=== PATIENT | female | born 2000 | race Caucasian/White ===

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

== ENCOUNTER 2022-04-24 23:47 | Emergency (ER) | payer OTHER, BC ==
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
[2022-04-25] MEDS ORDERED: MORPHINE 2 MG/ML CARPUJECT IVP STA ×2 (01:53→03:11)
[2022-04-25] MEDS ORDERED: ONDANSETRON 4 MG/2 ML VIAL IVP STA (01:53)
[2022-04-25] MEDS ORDERED: SODIUM CHLORIDE 0.9% 1,000 ML IV STA (01:53)
[2022-04-25 02:02] LABS: BASOPHILS # (AUTO) 0.1 10^3/uL (0.0-0.1); BASOPHILS % (AUTO) 0.7 %; EOSINOPHILS # (AUTO) 0.2 10^3/uL (0.0-0.7); EOSINOPHILS % (AUTO) 2.5 %; HCT - HEMATOCRIT 42.4 % (37.0-47.0); HGB - HEMOGLOBIN 14.1 g/dL (12.0-16.0); LYMPHOCYTES # (AUTO) 2.3 10^3/uL (1.5-3.5); MEAN CORPUSCULAR HEMOGLOBIN 29.2 pg (27.0-31.0); MEAN CORPUSCULAR HGB CONC 33.3 g/dL (32.0-36.0); MEAN CORPUSCULAR VOLUME 87.8 fL (81.0-99.0); MONOCYTES # (AUTO) 0.7 10^3/uL (0.0-1.0); MONOCYTES % (AUTO) 8.4 %; NEUTROPHILS # (AUTO) 5.2 10^3/uL (1.5-6.6); NEUTROPHILS % (AUTO) 61.2 %; PLT - PLATELET COUNT 224 10^3/uL (130-450); RED BLOOD COUNT 4.83 10^6/uL (4.20-5.40); RED CELL DISTRIBUTION WIDTH 11.9 % (12.0-15.0); WHITE BLOOD COUNT 8.4 x10^3/uL (4.8-10.8)
[2022-04-25 02:16] LABS: ALBUMIN 5.2 g/dL (3.2-5.5); ALBUMIN/GLOBULIN RATIO 1.9 (1.0-2.2); BILIRUBIN,TOTAL 0.6 mg/dL (0.2-1.0); CALCIUM 9.7 mg/dL (8.5-10.3); CREATININE 0.7 mg/dL (0.4-1.0); POTASSIUM 3.3 mmol/L (3.5-5.0); TOTAL PROTEIN 7.9 g/dL (6.7-8.2)
[2022-04-25 03:32] LABS: BILIRUBIN,URINE NEGATIVE (NEGATIVE); GLUCOSE, URINE (UA) NEGATIVE (NEGATIVE); KETONES,URINE (UA) NEGATIVE (NEGATIVE); LEUKOCYTE ESTERASE, URINE NEGATIVE (NEGATIVE); NITRITE,URINE NEGATIVE (NEGATIVE); OCCULT BLOOD,URINE NEGATIVE (NEGATIVE); PROTEIN,URINE NEGATIVE (NEGATIVE); UROBILINOGEN,URINE 0.2 (NORMAL) E.U./dL (NORMAL)
[2022-04-25 03:33] LABS: CLARITY,URINE CLEAR (CLEAR)
[2022-04-25 04:40] LABS: HCG UR QUAL NEGATIVE
[2022-04-25 05:37] VITALS: BP 118/75
--- NOTE | 2022-04-25 12:12 | CT Report ---
PROCEDURE: Abdomen/Pelvis W INDICATIONS: RLQ pain, tenderness CONTRAST: IV CONTRAST: Optiray 320 ml: 100 PO CONTRAST: *NO PO CONTRAST TECHNIQUE: After the administration of IV contrast, 5 mm thick sections acquired from the diaphragms to the symp hysis. 5 mm thick coronal and sagittal reformats were acquired. For radiation dose reduction, the f ollowing was used: automated exposure control, adjustment of mA and/or kV according to patient size. COMPARISON: Ultrasound pelvis, 08/05/2021. FINDINGS: Image quality: Excellent. ABDOMEN: Lung bases: Lung bases are clear. Heart size is normal. Solid organs: Liver and spleen are normal in size and enhancement. Gallbladder is normal. Biliary system is non dilated. Pancreas enhances normally. No adrenal nodules. Kidneys demonstrate normal size and enhancement, without hydronephrosis. Peritoneum and bowel: Normal appendix. Bowel loops demonstrate normal wall thickness and caliber. N o free fluid or air. Nodes and vessels: No retroperitoneal or mesenteric adenopathy by size criteria. Aorta and inferior vena cava are normal in size. Miscellaneous: No ventral hernias. PELVIS: Genitourinary: Bladder wall thickness is normal. Uterus and ovaries are grossly normal. Suspected c orpus due to cyst in the right ovary. No free fluid in the cul-de-sac or adnexa. Miscellaneous: No inguinal hernias or adenopathy. Bones: No suspicious bony lesions. No vertebral body compression fractures. IMPRESSION: 1. Normal appendix. 2. Suspect a corpus due to cyst in the right ovary. No free fluid in the pelvis. No significant discrepancy with the preliminary interpretation. Reviewed by: Argentina Rutledge MD on 04/25/2022 12:11 PM PDT Approved by: Argentina Rutledge MD on 04/25/2022 12:11 PM PDT Station ID: [id number]
== END 2022-04-25 05:35 | disposition home or self-care (01) ==
LOC: ED 23:47
DX: R10.31 Right lower quadrant pain (principal); M54.50 Low back pain, unspecified
CPT/HCPCS: 36415; 74177; 80053; 81003; 81025; 83690; 85025; 96374; 96375; 96376; 99284; Q9967; 81001; 87086

== ENCOUNTER 2022-08-06 11:00 | Outpatient (CLI) | payer BC ==
[2022-08-06 13:52] LABS: BASOPHILS # (AUTO) 0.1 10^3/uL (0.0-0.1); BASOPHILS % (AUTO) 1.1 %; EOSINOPHILS # (AUTO) 0.1 10^3/uL (0.0-0.7); EOSINOPHILS % (AUTO) 1.7 %; HCT - HEMATOCRIT 42.5 % (37.0-47.0); HGB - HEMOGLOBIN 13.6 g/dL (12.0-16.0); LYMPHOCYTES # (AUTO) 1.5 10^3/uL (1.5-3.5); LYMPHOCYTES % (AUTO) 28.2 %; MEAN CORPUSCULAR HEMOGLOBIN 28.6 pg (27.0-31.0); MEAN CORPUSCULAR VOLUME 89.3 fL (81.0-99.0); MEAN PLATELET VOLUME 10.5 fL (7.9-10.8); MONOCYTES # (AUTO) 0.5 10^3/uL (0.0-1.0); MONOCYTES % (AUTO) 8.7 %; NEUTROPHILS # (AUTO) 3.2 10^3/uL (1.5-6.6); NEUTROPHILS % (AUTO) 60.1 %; PLT - PLATELET COUNT 234 10^3/uL (130-450); RED BLOOD COUNT 4.76 10^6/uL (4.20-5.40); RED CELL DISTRIBUTION WIDTH 11.7 % (12.0-15.0); WHITE BLOOD COUNT 5.3 x10^3/uL (4.8-10.8)
[2022-08-06 14:05] LABS: ALBUMIN 4.6 g/dL (3.2-5.5); ALBUMIN/GLOBULIN RATIO 1.8 (1.0-2.2); BILIRUBIN,TOTAL 0.8 mg/dL (0.2-1.0); CALCIUM 9.7 mg/dL (8.5-10.3); CREATININE 0.8 mg/dL (0.4-1.0); POTASSIUM 4.2 mmol/L (3.5-5.0); TOTAL PROTEIN 7.2 g/dL (6.7-8.2)
[2022-08-06 14:16] LABS: THYROID STIMULATING HORMONE 1.22 uIU/mL (0.34-5.60)
== END 2022-08-06 11:01 | disposition home or self-care (01) ==
LOC: LAB.S 11:00
PROVIDERS: ATTEND Registered Nurse
DX: Z79.899 Other long term (current) drug therapy (principal); Z13.29 Encounter for screening for other suspected endocrine disorder
CPT/HCPCS: 36415; 80053; 84443; 85025

== ENCOUNTER 2022-10-26 12:37 | Emergency (ER) | payer BC ==
--- OUTSIDE RECORDS SUMMARY | 2022-10-26 13:01 | EXTERNAL MEDICAL SUMMARY RPT | Continuity of Care Document ---
:2000 Author Organization [facility] Address [address] [place] [address] Phone Care Team Providers Name Role Phone Unavailable Unavailable Unavailable Sonam Wyatt Unavailable Unavailable Allergies No information. Encounters No information. Functional Status No information. Immunizations No information. Medications date description facility 2022-08-02 00:00 escitalopram oxalate All 2022-09-05 00:00 MEDROXYPROGESTERONE ACETATE All 2022-08-02 00:00 escitalopram oxalate All 2022-08-02 00:00 escitalopram oxalate All 2022-08-02 00:00 escitalopram oxalate All 2022-08-03 00:00 bupropion hcl All 2022-08-07 00:00 bupropion hcl All 2022-09-05 00:00 bupropion hcl All 2022-09-06 00:00 bupropion hcl All Problems date description facility 2022-08-02 00:00 Thyroid disorder screening All 2022-08-02 00:00 Long-term drug therapy All 2022-08-02 00:00 Long-term (current) drug use All 2022-08-02 00:00 Screening for thyroid disorders All 2022-08-02 00:00 Encounter for screening for other suspe cted endocrine All disorder 2022-08-02 00:00 Other halfway (current) drug therapy All Procedures date description facility 2022-09-05 00:00 First Ix admin via ID IM or jet injects with All counseling by physician for adult 2022-09-05 00:00 Fluarix Quadrivalent Intramuscular Susp ension All Prefilled Syringe 0.5 ML 2022-09-05 00:00 Depo-Provera Injection only 150 mg All Results/Labs test date author facility value unit interpret ation Result panel 1 (unknown) (no date) (unknown) All (no value) (units unknown ) (unknown) Result panel 2 (unknown) (no date) (unknown) All (no value) (units unknown ) (unknown) Result panel 3 (unknown) (no date) (unknown) All (no value) (units unknown ) (unknown) Result panel 4 (unknown) (no date) (unknown) All (no value) (units unknown ) (unknown) Result panel 5 (unknown) (no date) (unknown) All (no value) (units unknown ) (unknown) Result panel 6 (unknown) (no date) (unknown) All (no value) (units unknown ) (unknown) Result panel 7 (unknown) (no date) (unknown) All (no value) (units unknown ) (unknown) Result panel 8 (unknown) (no date) (unknown) All (no value) (units unknown ) (unknown) Result panel 9 (unknown) (no date) (unknown) All (no value) (units unknown ) (unknown) Result panel 10 (unknown) (no date) (unknown) All (no value) (units unknown ) (unknown) Result panel 11 (unknown) (no date) (unknown) All (no value) (units unknown ) (unknown) Result panel 12 (unknown) (no date) (unknown) All (no value) (units unknown ) (unknown) Result panel 13 (unknown) (no date) (unknown) All (no value) (units unknown ) (unknown) Result panel 14 (unknown) (no date) (unknown) All (no value) (units unknown ) (unknown) Result panel 15 (unknown) (no date) (unknown) All (no value) (units unknown ) (unknown) Result panel 16 (unknown) (no date) (unknown) All (no value) (units unknown ) (unknown) Result panel 17 (unknown) (no date) (unknown) All (no value) (units unknown ) (unknown) Result panel 18 (unknown) (no date) (unknown) All (no value) (units unknown ) (unknown) Result panel 19 (unknown) (no date) (unknown) All (no value) (units unknown ) (unknown) Result panel 20 (unknown) (no date) (unknown) All (no value) (units unknown ) (unknown) Result panel 21 (unknown) (no date) (unknown) All (no value) (units unknown ) (unknown) Result panel 22 (unknown) (no date) (unknown) All (no value) (units unknown ) (unknown) Result panel 23 (unknown) (no date) (unknown) All (no value) (units unknown ) (unknown) Result panel 24 (unknown) (no date) (unknown) All (no value) (units unknown ) (unknown) Result panel 25 (unknown) (no date) (unknown) All (no value) (units unknown ) (unknown) Result panel 26 (unknown) (no date) (unknown) All (no value) (units unknown ) (unknown) Result panel 27 (unknown) (no date) (unknown) All (no value) (units unknown ) (unknown) Result panel 28 (unknown) (no date) (unknown) All (no value) (units unknown ) (unknown) Result panel 29 (unknown) (no date) (unknown) All (no value) (units unknown ) (unknown) Result panel 30 (unknown) (no date) (unknown) All (no value) (units unknown ) (unknown) Result panel 31 (unknown) (no date) (unknown) All (no value) (units unknown ) (unknown) Result panel 32 (unknown) (no date) (unknown) All (no value) (units unknown ) (unknown) Result panel 33 (unknown) (no date) (unknown) All (no value) (units unknown ) (unknown) Result panel 34 (unknown) (no date) (unknown) All (no value) (units unknown ) (unknown) Result panel 35 (unknown) (no date) (unknown) All (no value) (units unknown ) (unknown) Result panel 36 (unknown) (no date) (unknown) All (no value) (units unknown ) (unknown) Result panel 37 (unknown) (no date) (unknown) All (no value) (units unknown ) (unknown) Result panel 38 (unknown) (no date) (unknown) All (no value) (units unknown ) (unknown) Result panel 39 (unknown) (no date) (unknown) All (no value) (units unknown ) (unknown) Result panel 40 (unknown) (no date) (unknown) All (no value) (units unknown ) (unknown) Result panel 41 (unknown) (no date) (unknown) All (no value) (units unknown ) (unknown) Result panel 42 (unknown) (no date) (unknown) All (no value) (units unknown ) (unknown) Result panel 43 (unknown) (no date) (unknown) All (no value) (units unknown ) (unknown) Result panel 44 (unknown) (no date) (unknown) All (no value) (units unknown ) (unknown) Result panel 45 (unknown) (no date) (unknown) All (no value) (units unknown ) (unknown) Result panel 46 (unknown) (no date) (unknown) All (no value) (units unknown ) (unknown) Result panel 47 (unknown) (no date) (unknown) All (no value) (units unknown ) (unknown) Result panel 48 (unknown) (no date) (unknown) All (no value) (units unknown ) (unknown) Result panel 49 (unknown) (no date) (unknown) All (no value) (units unknown ) (unknown) Result panel 50 (unknown) (no date) (unknown) All (no value) (units unknown ) (unknown) Result panel 51 (unknown) (no date) (unknown) All (no value) (units unknown ) (unknown) Result panel 52 (unknown) (no date) (unknown) All (no value) (units unknown ) (unknown) Result panel 53 (unknown) (no date) (unknown) All (no value) (units unknown ) (unknown) Result panel 54 (unknown) (no date) (unknown) All (no value) (units unknown ) (unknown) Result panel 55 (unknown) (no date) (unknown) All (no value) (units unknown ) (unknown) Result panel 56 (unknown) (no date) (unknown) All (no value) (units unknown ) (unknown) Result panel 57 (unknown) (no date) (unknown) All (no value) (units unknown ) (unknown) Result panel 58 (unknown) (no date) (unknown) All (no value) (units unknown ) (unknown) Result panel 59 (unknown) (no date) (unknown) All (no value) (units unknown ) (unknown) Result panel 60 (unknown) (no date) (unknown) All (no value) (units unknown ) (unknown) Result panel 61 (unknown) (no date) (unknown) All (no value) (units unknown ) (unknown) Result panel 62 (unknown) (no date) (unknown) All (no value) (units unknown ) (unknown) Result panel 63 (unknown) (no date) (unknown) All (no value) (units unknown ) (unknown) Result panel 64 (unknown) (no date) (unknown) All (no value) (units unknown ) (unknown) Result panel 65 (unknown) (no date) (unknown) All (no value) (units unknown ) (unknown) Result panel 66 (unknown) (no date) (unknown) All (no value) (units unknown ) (unknown) Result panel 67 (unknown) (no date) (unknown) All (no value) (units unknown ) (unknown) Result panel 68 (unknown) (no date) (unknown) All (no value) (units unknown ) (unknown) Result panel 69 (unknown) (no date) (unknown) All (no value) (units unknown ) (unknown) Result panel 70 (unknown) (no date) (unknown) All (no value) (units unknown ) (unknown) Result panel 71 (unknown) (no date) (unknown) All (no value) (units unknown ) (unknown) Result panel 72 (unknown) (no date) (unknown) All (no value) (units unknown ) (unknown) Result panel 73 (unknown) (no date) (unknown) All (no value) (units unknown ) (unknown) Result panel 74 (unknown) (no date) (unknown) All (no value) (units unknown ) (unknown) Result panel 75 (unknown) (no date) (unknown) All (no value) (units unknown ) (unknown) Result panel 76 (unknown) (no date) (unknown) All (no value) (units unknown ) (unknown) Result panel 77 (unknown) (no date) (unknown) All (no value) (units unknown ) (unknown) Result panel 78 (unknown) (no date) (unknown) All (no value) (units unknown ) (unknown) Result panel 79 (unknown) (no date) (unknown) All (no value) (units unknown ) (unknown) Result panel 80 (unknown) (no date) (unknown) All (no value) (units unknown ) (unknown) Result panel 81 (unknown) (no date) (unknown) All (no value) (units unknown ) (unknown) Result panel 82 (unknown) (no date) (unknown) All (no value) (units unknown ) (unknown) Result panel 83 (unknown) (no date) (unknown) All (no value) (units unknown ) (unknown) Result panel 84 (unknown) (no date) (unknown) All (no value) (units unknown ) (unknown) Result panel 85 (unknown) (no date) (unknown) All (no value) (units unknown ) (unknown) Result panel 86 (unknown) (no date) (unknown) All (no value) (units unknown ) (unknown) Result panel 87 (unknown) (no date) (unknown) All (no value) (units unknown ) (unknown) Result panel 88 (unknown) (no date) (unknown) All (no value) (units unknown ) (unknown) Result panel 89 (unknown) (no date) (unknown) All (no value) (units unknown ) (unknown) Result panel 90 (unknown) (no date) (unknown) All (no value) (units unknown ) (unknown) Result panel 91 (unknown) (no date) (unknown) All (no value) (units unknown ) (unknown) Result panel 92 (unknown) (no date) (unknown) All (no value) (units unknown ) (unknown) Result panel 93 (unknown) (no date) (unknown) All (no value) (units unknown ) (unknown) Result panel 94 (unknown) (no date) (unknown) All (no value) (units unknown ) (unknown) Result panel 95 (unknown) (no date) (unknown) All (no value) (units unknown ) (unknown) Result panel 96 (unknown) (no date) (unknown) All (no value) (units unknown ) (unknown) Result panel 97 (unknown) (no date) (unknown) All (no value) (units unknown ) (unknown) Result panel 98 (unknown) (no date) (unknown) All (no value) (units unknown ) (unknown) Result panel 99 (unknown) (no date) (unknown) All (no value) (units unknown ) (unknown) Result panel 100 (unknown) (no date) (unknown) All (no value) (units unknown ) (unknown) Result panel 101 (unknown) (no date) (unknown) All (no value) (units unknown ) (unknown) Result panel 102 (unknown) (no date) (unknown) All (no value) (units unknown ) (unknown) Result panel 103 (unknown) (no date) (unknown) All (no value) (units unknown ) (unknown) Result panel 104 (unknown) (no date) (unknown) All (no value) (units unknown ) (unknown) Result panel 105 (unknown) (no date) (unknown) All (no value) (units unknown ) (unknown) Result panel 106 (unknown) (no date) (unknown) All (no value) (units unknown ) (unknown) Result panel 107 (unknown) (no date) (unknown) All (no value) (units unknown ) (unknown) Result panel 108 (unknown) (no date) (unknown) All (no value) (units unknown ) (unknown) Result panel 109 (unknown) (no date) (unknown) All (no value) (units unknown ) (unknown) Result panel 110 (unknown) (no date) (unknown) All (no value) (units unknown ) (unknown) Result panel 111 (unknown) (no date) (unknown) All (no value) (units unknown ) (unknown) Result panel 112 (unknown) (no date) (unknown) All (no value) (units unknown ) (unknown) Result panel 113 (unknown) (no date) (unknown) All (no value) (units unknown ) (unknown) Result panel 114 (unknown) (no date) (unknown) All (no value) (units unknown ) (unknown) Result panel 115 (unknown) (no date) (unknown) All (no value) (units unknown ) (unknown) Result panel 116 (unknown) (no date) (unknown) All (no value) (units unknown ) (unknown) Result panel 117 (unknown) (no date) (unknown) All (no value) (units unknown ) (unknown) Result panel 118 (unknown) (no date) (unknown) All (no value) (units unknown ) (unknown) Result panel 119 (unknown) (no date) (unknown) All (no value) (units unknown ) (unknown) Result panel 120 (unknown) (no date) (unknown) All (no value) (units unknown ) (unknown) Result panel 121 (unknown) (no date) (unknown) All (no value) (units unknown ) (unknown) Result panel 122 (unknown) (no date) (unknown) All (no value) (units unknown ) (unknown) Result panel 123 (unknown) (no date) (unknown) All (no value) (units unknown ) (unknown) Result panel 124 (unknown) (no date) (unknown) All (no value) (units unknown ) (unknown) Result panel 125 (unknown) (no date) (unknown) All (no value) (units unknown ) (unknown) Result panel 126 (unknown) (no date) (unknown) All (no value) (units unknown ) (unknown) Result panel 127 (unknown) (no date) (unknown) All (no value) (units unknown ) (unknown) Result panel 128 (unknown) (no date) (unknown) All (no value) (units unknown ) (unknown) Result panel 129 (unknown) (no date) (unknown) All (no value) (units unknown ) (unknown) Result panel 130 (unknown) (no date) (unknown) All (no value) (units unknown ) (unknown) Result panel 131 (unknown) (no date) (unknown) All (no value) (units unknown ) (unknown) Result panel 132 (unknown) (no date) (unknown) All (no value) (units unknown ) (unknown) Result panel 133 (unknown) (no date) (unknown) All (no value) (units unknown ) (unknown) Result panel 134 (unknown) (no date) (unknown) All (no value) (units unknown ) (unknown) Result panel 135 (unknown) (no date) (unknown) All (no value) (units unknown ) (unknown) Social History No information. Vital Signs date measurement value units 2022-09-05 00:00 BMI 30.06 kg/m2 2022-09-05 00:00 weight_metric 89.36 kg 2022-09-05 00:00 weight_standard 197 lb
[2022-10-26 13:05] LABS: BASOPHILS % (AUTO) 0.6 %; EOSINOPHILS # (AUTO) 0.1 10^3/uL (0.0-0.7); EOSINOPHILS % (AUTO) 1.8 %; HCT - HEMATOCRIT 44.1 % (37.0-47.0); HGB - HEMOGLOBIN 14.2 g/dL (12.0-16.0); LYMPHOCYTES # (AUTO) 1.6 10^3/uL (1.5-3.5); LYMPHOCYTES % (AUTO) 25.2 %; MEAN CORPUSCULAR HEMOGLOBIN 28.2 pg (27.0-31.0); MEAN CORPUSCULAR HGB CONC 32.2 g/dL (32.0-36.0); MEAN CORPUSCULAR VOLUME 87.5 fL (81.0-99.0); MEAN PLATELET VOLUME 9.6 fL (7.9-10.8); MONOCYTES # (AUTO) 0.5 10^3/uL (0.0-1.0); MONOCYTES % (AUTO) 8.3 %; NEUTROPHILS % (AUTO) 63.9 %; PLT - PLATELET COUNT 253 10^3/uL (130-450); RED BLOOD COUNT 5.04 10^6/uL (4.20-5.40); RED CELL DISTRIBUTION WIDTH 11.4 % (12.0-15.0); WHITE BLOOD COUNT 6.2 x10^3/uL (4.8-10.8)
[2022-10-26 13:17] LABS: ALBUMIN 4.7 g/dL (3.2-5.5); ALBUMIN/GLOBULIN RATIO 1.6 (1.0-2.2); BILIRUBIN,TOTAL 0.7 mg/dL (0.2-1.0); CALCIUM 9.9 mg/dL (8.5-10.3); CREATININE 0.7 mg/dL (0.4-1.0); POTASSIUM 4.3 mmol/L (3.5-5.0); TOTAL PROTEIN 7.6 g/dL (6.7-8.2)
[2022-10-26] MEDS ORDERED: LIDOCAINE VISCOUS 2% 15 ML UDC MM STA (13:20)
[2022-10-26] MEDS ORDERED: MAG HYDROX/AL HYDROX/SIMETH 30 ML UDC PO STA (13:20)
[2022-10-26] MEDS ORDERED: SUMAtriptan 6 MG/0.5 ML VIAL SUBQ STA (13:21)
--- NOTE | 2022-10-26 13:22 | ED Physician Documentation ---
PD HPI ABD PAIN - Stated complaint Stated Complaint: CHEST/ABD PX - Chief complaint Chief Complaint: Abd Pain - History obtained from History obtained from: Patient - Additional information Additional information: 22-year-old with history of IBS, PCOS, migraines presents with upper abdominal pain radiating to either side this been going on for months. It is not related to eating. It comes and goes. She also notes migraines every day that she occasionally takes ibuprofen for. They are associated with light sensitivity and nausea in her throat. She denies weight loss. Her stools have been normal. No history of abdominal surgeries. PD PAST MEDICAL HISTORY - Past Medical History Past Medical History: Yes Cardiovascular: None Respiratory: None Neuro: None Endocrine/Autoimmune: None GI: None MANAGER REVENUE: None : None HEENT: None Psych: Depression, Anxiety Musculoskeletal: None Derm: None - Past Surgical History Past Surgical History: Yes General: Colonoscopy Ortho: ACL reconstruction - Present Medications Home Medications: Ambulatory Orders Medication Instructions Recorded Confirmed Escitalopram [Lexapro] 20 mg PO DAILY 09/20/21 10/26/22 Omeprazole 40 mg PO DAILY #30 cap 10/26/22 SUMAtriptan [Imitrex] 25 mg PO BID PRN #10 tablet 10/26/22 metFORMIN [Glucophage] 500 mg PO DAILY 10/26/22 10/26/22 - Allergies Allergies/Adverse Reactions: Allergies Allergy/AdvReac Type Severity Reaction Status Date / Time No Known Drug Allergies Allergy Verified 10/26/22 12:45 - Social History Does the pt smoke?: No Smoking Status: Never smoker Does the pt drink ETOH?: No Does the pt have substance abuse?: No - Immunizations Immunizations are current?: Yes - POLST Patient has POLST: No PD ED PE NORMAL - Vitals Vital signs reviewed: Yes - General General: Alert and oriented X 3, No acute distress - HEENT HEENT: PERRL, EOMI - Neck Neck: Supple, no meningeal sign, No bony TTP - Cardiac Cardiac: RRR, No murmur - Respiratory Respiratory: No respiratory distress, Clear bilaterally - Abdomen Abdomen: Normal bowel sounds, Soft, Other (Mild upper abdominal tenderness without surgical signs) - Derm Derm: No rash - Neuro Neuro: Alert and oriented X 3, manager production 2-12 intact, No motor deficit, No sensory deficit, Normal speech Eye Opening: Spontaneous Motor: Obeys Commands Verbal: Oriented GCS Score: 15 Results - Vitals Vitals: Vital Signs - 24 hr 10/26/22 12:42 Temperature 36.7 C Heart Rate 78 Respiratory 14 Rate Blood Pressure 132/72 H O2 Saturation 100 Oxygen O2 Source Room air - EKG (time done) 1603 EKG releavant findings:: EKG personally interpreted by author of this note. Relevant findings are: Rate: Rate (enter#) (68) Rhythm: NSR [place]: Normal Intervals: Normal NC QRS: Normal Ischemia: Normal ST segments - Labs Labs: Laboratory Tests 10/26/22 10/26/22 10/26/22 13:00 13:00 15:39 WBC 6.2 RBC 5.04 Hgb 14.2 Hct 44.1 MCV 87.5 MCH 28.2 MCHC 32.2 RDW 11.4 L Plt Count 253 MPV 9.6 Neut # (Auto) 4.0 Lymph # (Auto) 1.6 [place] # (Auto) 0.5 Eos # (Auto) 0.1 Baso # (Auto) 0.0 Absolute Nucleated RBC 0.00 Nucleated RBC % 0.0 Sodium 140 Potassium 4.3 Chloride 105 Carbon Dioxide 27 Anion Gap 8.0 BUN 12 Creatinine 0.7 Estimated GFR (MDRD) 107 Glucose 65 L Calcium 9.9 Total Bilirubin 0.7 AST 17 ALT 11 Alkaline Phosphatase 59 Total Protein 7.6 Albumin 4.7 Globulin 2.9 Albumin/Globulin Ratio 1.6 Lipase 31 Urine Color YELLOW Urine Clarity CLEAR Urine pH 7.5 Ur Specific [place] 1.015 Urine Protein NEGATIVE Urine Glucose (UA) NEGATIVE Urine Ketones NEGATIVE Urine Occult Blood NEGATIVE Urine Nitrite NEGATIVE Urine Bilirubin NEGATIVE Urine Urobilinogen 0.2 (NORMAL) Ur Leukocyte Esterase SMALL H Urine RBC 0-5 Urine WBC 6-10 H Ur Squamous Epith Cells MANY Squamous H Urine Bacteria Many H Ur Microscopic Review INDICATED Urine Culture Comments NOT INDICATED Urine HCG, Qual NEGATIVE PD Medical Decision Making - ED course Complexity details: reviewed results (CBC reviewed and normal. CMP reviewed and normal. Urinalysis reviewed showing many squamous cells, and a negative test.) ED course: 22-year-old woman whose had ongoing upper abdominal pain and headaches for months now. The headaches did seem migrainous, and she did respond to Imitrex from that regard. Her abdominal pain was waxing and waning. She did not have any response to GI cocktail but felt better from that perspective after Toradol. The pain radiated into the chest so an EKG was done and negative. She has no tenderness to suggest need for imaging but probably needs follow-up for EGD. Departure - Departure Disposition: 01 Home, Self Care Clinical Impression: Abdominal pain Qualifiers: Abdominal location: epigastric Qualified Code(s): R10.13 - Epigastric pain Condition: Good Record reviewed to determine appropriate education?: Yes Instructions: ED Abdominal Pain Female Non-Specific Abdominal Pain Prescriptions: SUMAtriptan [Imitrex] 25 mg PO BID PRN #10 tablet PRN Reason: Headache Omeprazole 40 mg PO DAILY #30 cap Comments: Follow-up with your primary care physician, consider referral for upper endoscopy for the ongoing upper abdominal pain which is most likely gastritis or reflux. Also for the headaches which I am prescribing Imitrex for. Return for new or worsening symptoms. Call your doctor Saturday for next available appointment. Your EKG and labs were normal.
[2022-10-26] MEDS ORDERED: KETOROLAC 60 MG/2 ML VIAL IM STA (14:49)
--- NOTE | 2022-10-26 14:52 | CT Report ---
PROCEDURE: HEAD WO INDICATIONS: headache TECHNIQUE: Noncontrast 4.5 mm thick angled axial sections acquired from the foramen magnum to the vertex. For r adiation dose reduction, the following was used: automated exposure control, adjustment of mA and/or kV according to patient size. COMPARISON: None. FINDINGS: Image quality: Fair. CSF spaces: Basal cisterns are patent. No extra-axial fluid collections. Ventricles are normal in size and shape. Brain: No midline shift. No intracranial masses or hemorrhage. Ferguson-white matter interface is norm al. Skull and face: Calvarium and visualized facial bones are intact, without suspicious lesions. Sinuses: Visualized sinuses and mastoids are clear. IMPRESSION: No acute intracranial abnormality. Reviewed by: Rolan Green MD on 10/26/2022 2:50 PM [facility] Approved by: Rolan Green MD on 10/26/2022 2:50 PM [facility] Station ID: [id number]
[2022-10-26 15:47] LABS: BILIRUBIN,URINE NEGATIVE (NEGATIVE); GLUCOSE, URINE (UA) NEGATIVE (NEGATIVE); KETONES,URINE (UA) NEGATIVE (NEGATIVE); LEUKOCYTE ESTERASE, URINE SMALL (NEGATIVE); NITRITE,URINE NEGATIVE (NEGATIVE); OCCULT BLOOD,URINE NEGATIVE (NEGATIVE); PH,URINE 7.5 PH (5.0-7.5); PROTEIN,URINE NEGATIVE (NEGATIVE); UROBILINOGEN,URINE 0.2 (NORMAL) E.U./dL (NORMAL)
[2022-10-26 15:52] LABS: CLARITY,URINE CLEAR (CLEAR); HCG UR QUAL NEGATIVE
[2022-10-26 15:57] LABS: BACTERIA,URINE Many /HPF (None Seen); RBC,URINE 0-5 /HPF (0-5); SQUAMOUS EPITHELIAL CELL,UR MANY Squamous (<= Few)
[2022-10-26 16:27] VITALS: BP 122/70
== END 2022-10-26 16:29 | disposition home or self-care (01) ==
LOC: ED 12:37
DX: R10.13 Epigastric pain (principal); R51.9 Headache, unspecified
CPT/HCPCS: 36415; 70450; 80053; 81001; 81025; 83690; 85025; 93005; 96372; 99284; A9270; 81003; 87086

== ENCOUNTER 2023-02-28 08:00 | Outpatient (CLI) | payer BC ==
--- NOTE | 2023-03-01 12:12 | XRAY Report ---
PROCEDURE: Toe(s) LT INDICATIONS: LEFT 2ND TOE PAIN TECHNIQUE: 3 views of the second toe(s) acquired. COMPARISON: None FINDINGS: Bones: No fractures or dislocations. No suspicious bony lesions. Soft tissues: No suspicious soft tissue densities. IMPRESSION: No visualized acute fracture or dislocation. However, occult injury cannot be excluded. Recommend rafael rt interval imaging follow-up in 7-10 days as clinically indicated for additional evaluation. Reviewed by: Juliette Sanchez MD on 03/01/2023 12:10 PM PDT Approved by: Juliette Sanchez MD on 03/01/2023 12:10 PM PDT Station ID: [id number]
== END 2023-02-28 23:59 | disposition home or self-care (01) ==
LOC: DI.S 08:00
PROVIDERS: ATTEND Physician Assistant Medical
DX: M79.675 Pain in left toe(s) (principal)
CPT/HCPCS: 73660

== ENCOUNTER 2023-04-24 12:41 | Outpatient (CLI) | payer BC ==
[2023-04-24 13:07] LABS: INR 1.1 (0.8-1.2); PT - PROTHROMBIN TIME 12.3 secs (9.9-12.6)
[2023-04-24 13:29] LABS: THYROID STIMULATING HORMONE 1.56 uIU/mL (0.34-5.60)
[2023-04-24 14:00] LABS: ESTIMATED AVERAGE GLUCOSE 100 mg/dL (70-100); HEMOGLOBIN A1c% 5.1 % (4.27-6.07)
[2023-04-25 19:07] LABS: FREE TESTOSTERONE(DIRECT) 2.2 pg/mL (0.0-4.2)
== END 2023-04-24 12:42 | disposition home or self-care (01) ==
LOC: LAB 12:41
PROVIDERS: ATTEND Obstetrics & Gynecology
DX: L68.0 Hirsutism (principal); N92.4 Excessive bleeding in the premenopausal period; E28.2 Polycystic ovarian syndrome
CPT/HCPCS: 36415; 82627; 83036; 83498; 84402; 84403; 84443; 85610; 85730

== ENCOUNTER 2023-10-08 11:35 | Outpatient (CLI) | payer BC ==
[2023-10-08 12:11] LABS: BASOPHILS % (AUTO) 0.7 %; EOSINOPHILS # (AUTO) 0.1 10^3/uL (0.0-0.7); EOSINOPHILS % (AUTO) 1.7 %; HCT - HEMATOCRIT 43.6 % (37.0-47.0); HGB - HEMOGLOBIN 13.9 g/dL (12.0-16.0); LYMPHOCYTES # (AUTO) 1.3 10^3/uL (1.5-3.5); LYMPHOCYTES % (AUTO) 23.5 %; MEAN CORPUSCULAR HEMOGLOBIN 28.3 pg (27.0-31.0); MEAN CORPUSCULAR HGB CONC 31.9 g/dL (32.0-36.0); MEAN CORPUSCULAR VOLUME 88.6 fL (81.0-99.0); MONOCYTES # (AUTO) 0.4 10^3/uL (0.0-1.0); MONOCYTES % (AUTO) 7.6 %; NEUTROPHILS # (AUTO) 3.6 10^3/uL (1.5-6.6); NEUTROPHILS % (AUTO) 66.3 %; PLT - PLATELET COUNT 266 10^3/uL (130-450); RED BLOOD COUNT 4.92 10^6/uL (4.20-5.40); WHITE BLOOD COUNT 5.4 x10^3/uL (4.8-10.8)
[2023-10-08 13:03] LABS: FERRITIN 9.5 ng/mL (11.0-306.8)
== END 2023-10-08 11:36 | disposition home or self-care (01) ==
LOC: LAB 11:35
PROVIDERS: ATTEND Internal Medicine Hematology & Oncology
DX: R79.1 Abnormal coagulation profile (principal)
CPT/HCPCS: 36415; 81599; 82728; 83540; 84466; 85025